=== PATIENT | female | born 1995 | race Caucasian/White ===

== ENCOUNTER 2020-09-06 11:52 | Emergency (ER) | payer MEDICAID ==
[~2020-09-06] VITALS: Ht 162.6 cm; Wt 76.7 kg
[2020-09-06 12:04] VITALS: BP 133/79
--- NOTE | 2020-09-06 12:25 | NUR ---
PT AMBULATED WITH STEADY GAIT TO BED 7
[2020-09-06] MEDS ORDERED: KETOROLAC 60 MG/2 ML VIAL IM ONE (12:45)
--- NOTE | 2020-09-06 12:52 | NUR ---
25/F presents to ED with c/o sob. Patient states for one month she has been having episode of shortness of breath and cough. Patient states she was seen twice in the past month at [facility] and was dx with Pnuemonia but states has experienced no relief with the prescribed medications. Patient has nonproductive cough, states she feels pain when she coughs, oxygen saturation 97% on room air, Dr. Vanegas bedside.
[2020-09-06 13:39] LABS: ALBUMIN 3.3 g/dL (3.4-5.0); ANION GAP 13.8 (8-16); CARBON DIOXIDE 24.9 mmol/L (21-32); CREATININE 0.7 mg/dL (0.6-1.3); POTASSIUM 3.7 mmol/L (3.5-5.1); TOTAL BILIRUBIN 0.2 mg/dL (0.0-1.0)
[2020-09-06 13:44] LABS: BASOPHILS % (AUTO) 0.3 % (0.0-2.0); EOSINOPHILS # (AUTO) 0.2 K/uL (0-0.4); EOSINOPHILS % (AUTO) 1.3 % (0.0-4.0); HEMATOCRIT 33.8 % (36-48); HEMOGLOBIN 11.1 g/dL (12.0-16.0); LYMPHOCYTES # (AUTO) 2.1 K/uL (2.5-16.5); LYMPHOCYTES % (AUTO) 16.4 % (20.5-51.1); MEAN CORPUSCULAR HEMOGLOBIN 30 pg (27-31); MEAN CORPUSCULAR HGB CONC 33 g/dL (33-37); MEAN CORPUSCULAR VOLUME 90.7 fL (80-94); MONOCYTES # (AUTO) 0.7 K/uL (0.8-1.0); MONOCYTES % (AUTO) 5.2 % (1.7-9.3); NEUTROPHILS # (AUTO) 9.9 K/uL (1.8-7.7); NEUTROPHILS % (AUTO) 76.8 % (42.2-75.2); PLATELET COUNT (AUTO) 348 K/uL (140-450); RED BLOOD CELL COUNT(AUTO) 3.72 MIL/uL (4.20-5.40); RED CELL DISTRIBUTION WIDTH 13.2 % (11.6-13.7); WHITE BLOOD COUNT (AUTO) 12.9 K/uL (4.8-10.8)
[2020-09-06] MEDS ORDERED: NAPR-54 PO (16:01)
[2020-09-06] MEDS ORDERED: AZIT250T4 PO (16:01)
[2020-09-06] MEDS ORDERED: PRED20TA5 PO (16:01)
[2020-09-06 16:15] VITALS: BP 124/70
--- NOTE | 2020-09-06 16:16 | NUR ---
Patient discharged with v/s stable. Written and verbal after care instructions given and explained. Patient alert, oriented and verbalized understanding of instructions. Ambulatory with steady gait. All questions addressed prior to discharge. ID band removed. Patient advised to follow up with PMD. Rx of Azithromax, naprosyn and Prednisone given. Patient educated on indication of medication including possible reaction and side effects. Opportunity to ask questions provided and answered.
== END 2020-09-06 16:14 | disposition home or self-care (01) ==
LOC: MED 11:52 → EDSEX 11:52 → MED 16:14
DX: R09.1 Pleurisy (principal); L92.9 Granulomatous disorder of the skin and subcutaneous tissue, unspecified; Z90.49 Acquired absence of other specified parts of digestive tract; Z79.899 Other long term (current) drug therapy
CPT/HCPCS: 36415; 71045; 71275; 80053; 85025; 85379; 93005; 96372; 99285; J1885; Q9967